=== PATIENT | male | born 1975 | race Two or more races ===

== ENCOUNTER 2025-09-30 21:38 | Emergency (ER) | payer MEDICAID, SELFPAY ==
[2025-09-30 21:39] VITALS: BMI 25.0
--- NOTE | 2025-09-30 21:54 | XR_ITS ---
EXAMINATION: PA lateral chest 2 views TECHNIQUE: Upright PA and lateral chest 2 views Date and time: September 30, 2025, 1004 hours INDICATIONS: Chest pressure nasal congestion 5 days. FINDINGS: Pneumonia left base retrocardiac Right lung clear Normal heart size IMPRESSION: Left base pneumonia
[2025-09-30 22:06] VITALS: BP 118/75; PULSE 99; RESP 18; TEMP 36.9; O2SAT 97
--- NOTE | 2025-09-30 22:30 | PD.EDURI ---
Upper Respiratory Inf. RME/HPI General Chief Complaint: Flu Like Symptoms Stated Complaint: FLU SYMPTOM, NASAL CONGESTION, CHEST PRESSURE Time Seen by Provider: 09/30/25 22:10 Arrival date/time: 09/30/25 21:38 49M with history of alcohol/drug use presents to ED with several days of cough, nasal congestion, and chest pressure when coughing. Limitations: no limitations Related Data Previous Rx's ?Medication ?Instructions ?Recorded oxycodone-acetaminophen 7.5 mg-325 1 tab PO Q8H PRN pain #14 tabs 07/20/21 mg tablet (Percocet) pantoprazole 20 mg tablet,delayed 20 mg PO QAM #14 tabs 07/20/21 release (Protonix) ibuprofen 800 mg tablet 800 mg PO TID PRN pain #30 tabs 01/17/22 ibuprofen 800 mg tablet 800 mg PO TID PRN pain #30 tabs 07/16/23 clindamycin HCl 300 mg capsule 300 mg PO Q6H #40 caps 05/25/24 amoxicillin 875 mg tablet 875 mg PO TID 5 days #15 tabs 09/30/25 azithromycin 250 mg tablet See Rx Instructions PO .COMPLEX #6 09/30/25 tabs Allergies Allergy/AdvReac Type Severity Reaction Status Date / Time No Known Allergies Allergy Verified 09/30/25 21:38 Review of Systems Review of Systems Systems Reviewed: All systems reviewed, normal except as documented ENT Ears, Nose, Mouth, and Throat: Reports system reviewed and no additional complaints, except as documented and Reports nasal congestion Respiratory Respiratory: Reports as per HPI, Reports cough and Reports pain with cough Past Medical History Social History SMOKING STATUS: Never smoker ED Exam General Limitations: Present no limitations General appearance: Present alert and in no apparent distress Head Head exam: Present atraumatic Neck Neck exam: Present normal inspection, full ROM and trachea midline Chest Chest inspection: Present normal inspection and symmetric chest wall rise Respiratory Respiratory exam: Present normal lung sounds bilaterally Neurological Exam Neurological exam: Present alert and oriented X3 Psychiatric Psychiatric exam: Present normal affect and normal mood Skin Skin exam: Present warm, dry, intact and normal color Course Quality Measures none Orders Category Date Time Status XR chest 2V Stat Exams 09/30/25 21:54 Completed dexAMETHasone INJ [Decadron Inj] Med 09/30/25 22:11 Discontinued 10 mg PO X1 ONE Vital Signs Vital signs: Vital Signs Temperature 98.4 F 09/30/25 22:06 Pulse Rate 99 09/30/25 22:06 Respiratory Rate 18 09/30/25 22:06 Blood Pressure 118/75 09/30/25 22:06 Pulse Oximetry (%) 97 09/30/25 22:06 Oxygen Delivery Method Room Air 09/30/25 22:06 O2 at 97% on RA and WNLs Upper Respiratory Infection MDM Narrative MDM Narrative:: 49M with history of alcohol/drug use presents to ED with several days of cough, nasal congestion, and chest pressure when coughing. Physical exam reveals clear lungs and normal WOB. Patient is afebrile, calm, and alert. XR reveals L-sided PNA. Meds and pediatric genetic counselor given. Patient data External records reviewed:: [facility] previous records Clinical information provided by:: patient Social determinants that could affect healthcare access:: alcohol use Patient has the following chronic illnesses:: alcohol/drugs How is presenting disease/condition affected by chronic disease/condition?: exacerbated by Evaluation data The following diagnostics were reviewed and interpreted by me:: radiology exam(s) Lab and/or radiology exams considered but not ordered:: ordered Interpretation Summary: above Medications / Prescriptions Medications or Prescriptions considered but not ordered:: ordered Medication administrations:: Medication Administration History Discontinued Medications Dexamethasone Sodium Phosphate (Dexamethasone Sod Phos Inj 10 Mg/Ml Vial) 10 mg PO X1 ONE Stop: 09/30/25 22:12 Last Admin: 09/30/25 22:45 Dose: 10 mg Documented By: BD Comments: given po above Consultations Consultation(s) initiated? (list below): No Diagnosis Upper Respiratory Differential Diagnosis: upper respiratory infection, croup, otitis media, sinusitis, viral infection, bronchitis, influenza, pharyngitis and other (CAP) Most likely diagnosis given after review of the tests above:: CAP Admission Indicated Admission indicated?: not indicated Admission Request Was there a request for admission?: No Disposition Plan Disposition Plan: Discharge Discharge Attestation Discharge Attestation: The patient and all family members were given an opportunity to ask questions and understood the discharge instructions. Discharge instructions specifically effects, indications for sooner follow up or return to the emergency department, and the expected course of current diagnosis. Patient condition: Stable Discharge Plan Plan Patient Disposition: HOME (Self Care) Discharge Disposition comment: Stable Prescriptions/Referrals Prescriptions/Med Rec: New azithromycin 250 mg tablet See Rx Instructions .ROUTE .COMPLEX Qty: 6 0RF Rx Instructions: For 250 mg dose pack: take 500 mg today (day 1), then 250 mg for 4 days (days 2-5) amoxicillin 875 mg tablet 875 mg PO TID 5 Days Qty: 15 0RF No Action ibuprofen 800 mg tablet 800 mg PO TID PRN (Reason: pain) Qty: 30 0RF oxycodone-acetaminophen [Percocet] 7.5-325 mg tablet 1 tab PO Q8H MDD 3 PRN (Reason: pain) Qty: 14 0RF pantoprazole [Protonix] 20 mg tablet,delayed release (DR/EC) 20 mg PO QAM Qty: 14 0RF clindamycin HCl 300 mg capsule 300 mg PO Q6H Qty: 40 0RF ibuprofen 800 mg tablet 800 mg PO TID PRN (Reason: pain) Qty: 30 0RF Referrals: No Primary/Family,Physician [Primary Care Provider] - In 1 week Problem List Clinical Impression: CAP (community acquired pneumonia) Patient/Caregiver Discharge Instructions Education Materials: ED Pneumonia (Adult) Additional Instructions: Please follow-up with PCP within 24-48 hours and return immediately if symptoms worsen. Ibuprofen/Tylenol can be used simultaneously for greater fever/pain control. Benadryl is good for cough, congestion, and sleep. Keep hydrated. Advance diet as tolerated. Print Language: Thai Stand Alone Forms: Patient Portal Info Letter PA/RETAIL SPECIALIST Supervising Physician PA/RETAIL SPECIALIST Supervising Physician: Dr. Huertas
== END 2025-09-30 23:10 | disposition home or self-care (01) ==
PROVIDERS: Emergency Provider Emergency Medicine
DX: J18.9 Pneumonia, unspecified organism (principal); R09.81 Nasal congestion
CPT/HCPCS: 71046; 99282; J1100